=== PATIENT | female | born 1970 | race Caucasian/White ===

== ENCOUNTER 2023-01-17 05:53 | Day surgery (SDC) | payer OTHER ==
[2023-01-12 13:46] LABS: Absolute Lymphocytes (CBC) 2.6 K/uL (0.7-4.9); Hematocrit 36.1 % (36.0-45.0); Lymphocytes % 34.5 % (15.3-44.8); MCV 93.4 fL (80-100); MPV 8.5 fL (7.6-11.3); RBC Red Blood Cell Count 3.86 M/uL (3.86-4.86)
--- NOTE | 2023-01-12 13:54 | RAD REPORT ---
EXAM DESCRIPTION: Mami Martin (2 Views)01/12/2023 1:41 pm CLINICAL HISTORY: Preop COMPARISON: 2011 FINDINGS: The lungs appear clear of acute infiltrate. The heart is normal size IMPRESSION: No acute abnormalities displayed
[2023-01-12 14:05] LABS: Potassium 3.8 mEq/L (3.5-5.1)
[2023-01-12 14:28] LABS: Protime INR 0.8
--- NOTE | 2023-01-14 11:19 | EKG ---
Test Date: 2023-01-12 Test Time: 13:20:03 Education And Training Coordinator: MADDY MEASUREMENT RESULTS: Intervals: Rate: 70 MN: 188 QRSD: 86 QT: 384 QTc: 414 [place]: P: 58 MN: 188 QRS: 84 T: 48 INTERPRETIVE STATEMENTS: Normal sinus rhythm Normal ECG Compared to ECG 08/23/2015 08:22:48 No significant changes Electronically Signed On 01-14-23 11:17:27 CDT by Omar Sol
[2023-01-17] MEDS ORDERED: Ringers Lactate 1,000 ML IV ONE (06:20)
[2023-01-17] MEDS ORDERED: CEFAZOLIN SODIUM 1 GM/VIAL ONE (06:20)
[2023-01-17] MEDS ORDERED: LIDOCAINE 1% MPF 5 ML VIAL ONE (07:03)
[2023-01-17] MEDS ORDERED: dexAMETHasone 10 MG/ML VIAL ONE ×2 (07:04→08:40)
[2023-01-17] MEDS ORDERED: FENTANYL CITR 100 MCG/2 ML ONE (07:04)
[2023-01-17] MEDS ORDERED: EPINEPHRINE/PF 1 MG/ML AMP ONE ×2 (07:04→07:19)
[2023-01-17] MEDS ORDERED: MIDAZOLAM HCL 2 MG/2 ML INJ ONE (07:04)
[2023-01-17] MEDS ORDERED: ROPLVACAINE HCL 40 ML ONE (07:05)
[2023-01-17] MEDS ORDERED: propofoL 200 MG/20 ML VIAL IV ONE (07:43)
[2023-01-17] MEDS ORDERED: LIDOCAINE 2% MPF 5 ML VIAL ONE (07:43)
[2023-01-17] MEDS ORDERED: ROCURONIUM 50 MG/5 ML VIAL IV ONE (07:44)
[2023-01-17] MEDS ORDERED: ONDANSETRON 4 MG/2 ML VIAL ONE (08:41)
[2023-01-17] MEDS ORDERED: CLINDAMYCIN 600MG/D5W 50 ML IV ONE (09:00)
[2023-01-17] MEDS ORDERED: KETOROLAC 30 MG/ML INJ ONE (10:19)
[2023-01-17] MEDS ORDERED: NEOSTIGMINE 1 MG/ML -10 ML VIAL ONE (10:23)
[2023-01-17] MEDS ORDERED: GLYCOPYRROLATE 0.2 MG/ML SYR ONE (10:23)
--- NOTE | 2023-01-17 10:29 | P.BOP ---
Preoperative diagnosis: left shoulder rotator cuff tear, biceps tendinitis, impingement syndrome Postoperative diagnosis: same Primary procedure: left shoulder arthroscopic rotator cuff repair Secondary procedure: left shoulder open subpectoral biceps tenodesis Other procedure(s): left shoulder arthroscopic subacromial decompression Compressor Mechanic Bus: NONE,NONE Estimated blood loss: 10 cc Specimen: none Findings: see dictation Anesthesia: General Complications: None Implants: 2- 4.75 mm arthrex swivelocks, 7x19 mm arthrex biotenodesis screw Fluids & blood products: per anesthesia record Transferred to: Recovery Room Condition: Good
--- NOTE | 2023-01-17 11:06 | RAD REPORT ---
EXAM DESCRIPTION: Shoulder 1 View - 01/17/2023 10:47 am CLINICAL HISTORY: s/p left rotator cuff repair COMPARISON: Shoulder Left Wo Cont dated 12/12/2022; Chest Pa And Lat (2 Views) dated 01/12/2023 TECHNIQUE: Single AP view of the left shoulder obtained. FINDINGS: There is no fracture or dislocation. AC joint is normal in appearance. Mildly widened arelis ohumeral joint. No acute or suspicious findings. Postsurgical changes in the soft tissues IMPRESSION: Postsurgical changes, with mild widening of the glenohumeral joint.
[2023-01-17 11:08] VITALS: BP 140/63; TEMP 96.9; O2SAT 97
[2023-01-17] MEDS ORDERED: HYDROCODONE/APAP 7.5/325 MG TAB ONE (11:42)
== END 2023-01-17 12:00 | disposition home or self-care (01) ==
LOC: OR 05:53
PROVIDERS: ATTEND Orthopaedic Surgery Sports Medicine
PROC: 0LS40ZZ Reposition Left Upper Arm Tendon, Open Approach (ICD-10-PCS; 2023-01-17)
PROC: 0RHK04Z Insertion of Internal Fixation Device into Left Shoulder Joint, Open Approach (ICD-10-PCS; 2023-01-17)
PROC: 0RNK4ZZ Release Left Shoulder Joint, Percutaneous Endoscopic Approach (ICD-10-PCS; principal; 2023-01-17 08:00)
DX: M75.122 Complete rotator cuff tear or rupture of left shoulder, not specified as traumatic (principal); S46.012A Strain of muscle(s) and tendon(s) of the rotator cuff of left shoulder, initial encounter; M75.42 Impingement syndrome of left shoulder; M25.512 Pain in left shoulder; M75.22 Bicipital tendinitis, left shoulder
CPT/HCPCS: 93005; 85025; 80048; 36415; 85610; 85730; 71046; 73020; 29827; 29826; 23430; J2704; J2710; J0171 ×2; J2001 ×2; J2250; J3010; J1100 ×2; J2405; J7120; J0690

== ENCOUNTER 2025-05-15 09:25 | Day surgery (SDC) | payer OTHER ==
[2025-05-13 14:34] LABS: Absolute Lymphocytes (CBC) 2.9 K/uL (0.7-4.9); Hematocrit 37.8 % (36.0-45.0); Hemoglobin 12.8 g/dL (12.0-15.0); MCH 33.1 pg (27.0-35.0); MCHC 33.8 g/dL (32.0-36.0); MCV 97.8 fL (80-100); MPV 8.5 fL (7.6-11.3); Nucleated RBC Absolute Count 0.0 (0-0); Nucleated Red Blood Cells % 0.2 % (0-0); RBC Red Blood Cell Count 3.87 M/uL (3.86-4.86); White Blood Count 7.50 thou/uL (4.3-10.9)
[2025-05-13 14:44] LABS: PT Prothrombin Time 12.0 SECONDS (10-13.0); PTT, Activated Partial Thromb 36.7 SECONDS (27.2-37.4); Protime INR 1.06
[2025-05-13 14:52] LABS: Anion Gap 6.7 mEq/L (5.0-15.0); BUN Blood Urea Nitrogen 19.0 mg/dL (7-18); Glucose Level 92.0 mg/dL (74-106); Potassium 3.7 mEq/L (3.5-5.1)
--- NOTE | 2025-05-13 15:25 | RAD REPORT ---
EXAM: Chest Pa And Lat (2 Views) HISTORY: 54 years Female PRE OP COMPARISON: 01/12/2023 FINDINGS: LUNGS/PLEURA: The lungs are clear. No pleural effusions or pneumothorax. No pulmonary edema. CARDIAC/MEDIASTINUM: The cardiac silhouette is within normal limits. UPPER ABDOMEN: No significant abnormality. BONES: No acute abnormality. LINES/TUBES/OTHER: N/A IMPRESSION: No evidence of acute cardiopulmonary disease. No significant change from prior.
[2025-05-15] MEDS: Ringers Lactate 1,000 ML IV ONE (10:05)
[2025-05-15] MEDS ORDERED: MIDAZOLAM HCL 2 MG/2 ML INJ ONE (10:08)
[2025-05-15] MEDS ORDERED: FENTANYL CITR 100 MCG/2 ML ONE (10:08)
[2025-05-15] MEDS ORDERED: ROCURONIUM 50 MG/5 ML VIAL IV ONE (10:51)
[2025-05-15] MEDS ORDERED: ONDANSETRON 4 MG/2 ML VIAL ONE (10:51)
[2025-05-15] MEDS ORDERED: LIDOCAINE 2% MPF 5 ML VIAL ONE (10:52)
[2025-05-15] MEDS ORDERED: EPINEPHRINE 1 MG/ML VIAL ONE (10:55)
[2025-05-15] MEDS ORDERED: SUGAMMADEX SODIUM 200 MG/2 ML VIAL IV ONE (11:17)
[2025-05-15] MEDS: CEFAZOLIN SODIUM 1 GM/VIAL ONE (11:36)
[2025-05-15] MEDS ORDERED: EPHEDRINE SULF 50 MG/ML VIAL ONE (11:41)
--- NOTE | 2025-05-15 13:13 | P.BOP ---
Preoperative diagnosis: Right knee rotator cuff tear, bicep synovitis, impingement syndrome Postoperative diagnosis: Same, biceps auto rupture, SLAP tear Primary procedure: Right shoulder arthroscopic rotator cuff repair Secondary procedure: Right shoulder arthroscopic biceps anchor, SLAP and subscap debridement Fisher Dip Net: NONE,NONE Estimated blood loss: 5 cc Specimen: None Findings: See dictation Anesthesia: General Complications: None Implants: 1-4.75 mm Arthrex swivel lock Fluids & blood products: Per anesthesia record Transferred to: Recovery Room Condition: Good
--- NOTE | 2025-05-15 13:19 | P.OP ---
Preoperative diagnosis: Right shoulder rotator cuff tear, biceps tendinitis, impingement syndrome Postoperative diagnosis: Same, biceps auto rupture, SLAP tear Primary procedure: Right shoulder arthroscopic rotator cuff repair Secondary procedure: Right shoulder arthroscopic biceps anchor, SLAP and subscap debridement Anesthesia: General Estimated blood loss: 5 cc Specimen: None Findings: See dictation Operative Technique: Indication For Procedure: Maya is a 54-year-old female who presented to my clinic with signs, symptoms, and MRI findings consistent with a right shoulder full-thickness rotator cuff tear. I discussed with the patient risks and benefits associated with operative and nonoperative treatment. She expressed understanding and elected to proceed with operative treatment. Description Of Procedure: After informed consent was obtained, the patient was identified in the preoperative holding area. The right upper extremity was marked. The patient then was brought to the PACU where she underwent a right- sided interscalene block performed by Anesthesia. The patient was brought back to the operating room, transferred to the operative table in supine fashion, placed under general endotracheal anesthesia. He was then placed in a beach chair position with his extremities well padded. The right upper extremity was then prepped and draped in usual sterile fashion. A time-out was initiated. The correct patient and procedure were performed and identified. The patient did receive preoperative prophylactic antibiotics. Via the posterior portal position, a spinal needle was introduced in the glenohumeral joint and the shoulder was injected with 30 cc of normal saline to distend the capsule. A stab incision was made posteriorly and a posterior portal was created. Arthroscope was brought in via the posterior portal position and diagnostic arthroscopy was performed. Under direct visualization, an anterior portal and c annula were created. The patient was noted to have a type 1 SLAP tear as well as a biceps tendon autorupture with a large frayed stump at the superior glenoid. The SLAP tear and biceps remnants was debrided using an arthroscopic shaver and meniscal biter. There were no significant instability of the superior labrum or anterior posterior labrum, which were stable to probe. Subscapularis was found to have s small tear at the superior insertion which was debrided using and arthroscopic shaver and found to be stable to probe. There were no loose bodies within the axillary pouch. The patient was noted to have a full-thickness tear of the anterior aspect of the supraspinatus. A lateral portal was created and an arthroscopic shaver was then used to debride the anterior aspect of the greater tuberosity. The rotator cuff tear was noted to create a bleeding bony bed. The undersurface of the rotator cuff tear was also debrided using the arthroscopic shaver to remove any unhealthy tissue. The arthroscope was then brought in the subacromial space and a lateral portal and cannula was placed. A subacromial bursectomy was performed using arthroscopic shaver. The patient was noted to have an anterior full-thickness tear without retraction. Sutures were then passed through the rotator cuff tear in anterior- posterior fashion. The suture limbs were passed through a Swivelock anchor and fixed to the greater tuberosity without complication. There was overall good reduction of the rotator cuff onto the greater tuberosity. The remaining suture limbs were then cut. There was some significant fraying of a coracoacromial ligament as well as some undersurface spurring of the acromion and acromioplasty was performed using a radiofrequency ablator and an arthroscopic bur. Arthrosc opic instruments were then removed without complication. Wounds were then irrigated thoroughly with normal saline. Subcutaneous tissue was approximated using a 2-0 Vicryl. Portals were approximated using a 3-0 Monocryl. Sterile dressings were applied. Shoulder immobilizer was placed. The patient was awakened and transferred to PACU in stable condition. Postoperative Plan: Maya will be nonweightbearing in a shoulder immobilizer for 6 weeks. We will follow the medium rotator cuff repair protocol for physical therapy 4 weeks postoperatively. Complications: None Implants: 1-4.75 mm Arthrex swivel lock Fluids & blood products: Per anesthesia record Transferred to: Recovery Room Condition: Good
[2025-05-15] MEDS: FENTANYL CITR 100 MCG/2 ML ONE (13:45)
--- NOTE | 2025-05-15 14:34 | RAD REPORT ---
EXAMINATION: XR RIGHT SHOUDLER CLINICAL INDICATION: Female, 54 years old. s/p Right RCR, SAD, biceps/SLAP debridement RIGHT TECHNIQUE: Single view radiograph of the right shoulder were obtained. COMPARISON: No prior exam. FINDINGS: No acute bone or joint abnormality detected. Normal alignment. Postsurgical changes in the periarticular soft tissues. No focal suspicious bone lesion. Mild AC joint degenerative changes. IMPRESSION: Postsurgical changes in the periarticular soft tissues.
[2025-05-15] MEDS: HYDROCODONE/APAP 7.5/325 MG TAB ONE (14:47)
[2025-05-15 16:32] VITALS: BP 105/71; TEMP 97.7; O2SAT 97
== END 2025-05-15 15:06 | disposition home or self-care (01) ==
LOC: OR 09:25
PROVIDERS: ATTEND Orthopaedic Surgery Sports Medicine
PROC: 0LB14ZZ Excision of Right Shoulder Tendon, Percutaneous Endoscopic Approach (ICD-10-PCS; principal; 2025-05-15 11:30)
DX: M75.121 Complete rotator cuff tear or rupture of right shoulder, not specified as traumatic (principal); M75.21 Bicipital tendinitis, right shoulder; M75.41 Impingement syndrome of right shoulder
CPT/HCPCS: 36415; 71046; 73020; 80048; 85025; 85610; 85730; 93005; J0169; J0690; J1100; J2003; J2250; J2405; J2704; J3010; J7120